=== PATIENT | female | born 1940 | race Caucasian/White ===

== ENCOUNTER 2024-06-14 18:43 | Emergency (ER) | payer MEDICARE, OTHER | END 2024-06-14 20:37 | disposition home or self-care (01) | LOC: CSHERS 18:43 | DX: S00.83XA Contusion of other part of head, initial encounter (principal); I10 Essential (primary) hypertension; I48.91 Unspecified atrial fibrillation; Z79.01 Long term (current) use of anticoagulants; W19.XXXA Unspecified fall, initial encounter | CPT/HCPCS: 70450; 93005; 93010 ==

== ENCOUNTER 2024-06-15 09:47 | Emergency (ER) | payer MEDICARE, OTHER ==
[2024-06-15 10:29] LABS: Hematocrit 36.4 % (34.9-44.5); Hemoglobin 11.2 g/dL (12.0-15.5); Mean Corpuscular HGB CONC 30.8 g/dL (32.0-36.0); Mean Corpuscular Hemoglobin 28.2 pg (27.0-33.0); Mean Corpuscular Volume 91.7 fL (81.6-98.3); Mean Platelet Volume 10.3 fL (7.4-10.4); Platelet Count 154 10x3/uL (150-450); RBC Distribution Width 16.8 % (11.5-14.5); Red Blood Cell (RBC) Count 3.97 10x6/uL (3.90-5.03); White Blood Cell (WBC) Count 5.2 10x3/uL (3.5-10.5)
[2024-06-15 10:30] LABS: MDiff Complete? YES
[2024-06-15 10:46] LABS: ALT (SGPT) 14 U/L (8-55); AST (SGOT) 56 U/L (5-34); Albumin 3.2 g/dL (3.4-4.8); Alkaline Phosphatase 63 U/L (40-110); Anion Gap 14 mmol/L (10-20); BUN (Urea Nitrogen) 19 mg/dL (9.8-20.1); Bilirubin, Total 0.6 mg/dL (0.2-1.2); Calc. Creatinine Clearance 0 mL/min (70-130); Calcium 9.5 mg/dL (7.8-10.44); Carbon Dioxide 28 mmol/L (23-31); Chloride 104 mmol/L (98-107); Estimated GFR 49; Globulin 2.9 g/dL (2.4-3.5); Glucose 80 mg/dL (83-110); Potassium 3.7 mmol/L (3.5-5.1); Protein, Total 6.1 g/dL (5.8-8.1); Sodium 142 mmol/L (136-145)
[2024-06-15 10:53] LABS: Troponin I Less than 0.010 ng/mL (< 0.028)
[2024-06-15 11:21] LABS: Band 1 % (5-11); Eosinophils 3 % (0-10); Lymphocytes 17 % (21-51); Monocytes 3 % (0-10); Neutrophil 76 % (42-75)
== END 2024-06-15 13:00 | disposition home or self-care (01) ==
LOC: CSHERS 09:47
DX: S00.83XA Contusion of other part of head, initial encounter (principal); I48.91 Unspecified atrial fibrillation; I10 Essential (primary) hypertension; Z55.0 Illiteracy and low-level literacy; Z79.899 Other long term (current) drug therapy; Z79.01 Long term (current) use of anticoagulants; W18.30XA Fall on same level, unspecified, initial encounter
CPT/HCPCS: 70450; 71045; 72128; 72131; 72170; 80053; 83605; 84484; 85025

== ENCOUNTER 2024-06-15 20:41 | Emergency (ER) | payer MEDICARE, OTHER | END 2024-06-15 22:25 | disposition home or self-care (01) | LOC: CSHERS 20:41 | DX: S00.83XA Contusion of other part of head, initial encounter (principal); Z55.6 Problems related to health literacy; I10 Essential (primary) hypertension; W07.XXXA Fall from chair, initial encounter | CPT/HCPCS: 70450; 71045; 72125; 72128; 72131; 72170; 80053; 83605; 84484; 85025 ==

== ENCOUNTER 2024-06-23 18:37 | Inpatient (IN) | payer MEDICARE, OTHER ==
[2024-06-23 20:10] LABS: Hematocrit 35.2 % (34.9-44.5); Hemoglobin 11.1 g/dL (12.0-15.5); Mean Corpuscular HGB CONC 31.5 g/dL (32.0-36.0); Mean Corpuscular Hemoglobin 28.5 pg (27.0-33.0); Mean Corpuscular Volume 90.3 fL (81.6-98.3); Mean Platelet Volume 10.5 fL (7.4-10.4); Platelet Count 150 10x3/uL (150-450); RBC Distribution Width 17.8 % (11.5-14.5); White Blood Cell (WBC) Count 4.2 10x3/uL (3.5-10.5)
[2024-06-23 20:17] LABS: INR-International Normal Ratio 1.1; PTT 37.4 sec (22.0-33.0); Prothrombin Time 12.3 sec (9.5-12.1)
[2024-06-23 20:21] LABS: ALT (SGPT) 14 U/L (8-55); AST (SGOT) 83 U/L (5-34); Albumin 2.8 g/dL (3.4-4.8); Alkaline Phosphatase 59 U/L (40-110); Anion Gap 15 mmol/L (10-20); BUN (Urea Nitrogen) 27 mg/dL (9.8-20.1); Bilirubin, Total 0.5 mg/dL (0.2-1.2); Calc. Creatinine Clearance 0 mL/min (70-130); Calcium 9.4 mg/dL (7.8-10.44); Carbon Dioxide 25 mmol/L (23-31); Chloride 101 mmol/L (98-107); Estimated GFR 29; Globulin 2.8 g/dL (2.4-3.5); Glucose 66 mg/dL (83-110); Potassium 4.2 mmol/L (3.5-5.1); Protein, Total 5.6 g/dL (5.8-8.1); Sodium 137 mmol/L (136-145)
[2024-06-23 20:23] LABS: Troponin I Less than 0.010 ng/mL (< 0.028)
[2024-06-23 20:29] LABS: MDiff Complete? YES
[2024-06-23 21:30] LABS: Band 8 % (5-11); Eosinophils 5 % (0-10); Lymphocytes 13 % (21-51); Monocytes 21 % (0-10); Neutrophil 52 % (42-75); Reactive Lymphocytes 1 % (0-10)
[2024-06-23 22:43] LABS: Anisocytosis SLIGHT = 6-15 cells (100X) (0-5/hpf); Platelet Adequacy Comment Appears Adequate
[2024-06-24] MEDS: Dextrose 5%-Lactated Ringers 1,000 ML IV SCH (02:14)
[2024-06-24] MEDS: Apixaban 2.5 MG TAB PO SCH ×2 (02:14→08:33)
[2024-06-24] MEDS: Oseltamivir 75 MG CAP PO SCH ×3 (02:16→09:38)
[2024-06-24 02:32] VITALS: BMI 22.1
[2024-06-24 03:52] LABS: Bilirubin Neg (Negative); Blood, Urine Negative (Negative); Clarity Clear (Clear); Glucose, Urine (Dipstick) Normal (Negative); Ketone, Urine Negative (Negative); Leukocyte Negative (Negative); Nitrite Negative (Negative); Protein, Urine (Dipstick) 30 mg/dl (Neg-Trace); Urobilinogen Normal mg/dL (Less than 2)
[2024-06-24 04:32] LABS: Bacteria/HPF Rare-Few HPF (None Seen); CAUTI Indications for Culture Alt mental st,lethar; RBC/HPF 0-3 HPF (0-3); Squamous Epithelial 0-3 HPF (0-3); Urine Culture Reflex No No; WBC/HPF 0-3 HPF (0-3)
[2024-06-24 04:33] LABS: Anion Gap 18 mmol/L (10-20); BUN (Urea Nitrogen) 25 mg/dL (9.8-20.1); Calc. Creatinine Clearance 22 mL/min (70-130); Calcium 8.9 mg/dL (7.8-10.44); Carbon Dioxide 22 mmol/L (23-31); Chloride 103 mmol/L (98-107); Estimated GFR 33; Glucose 76 mg/dL (83-110); Magnesium 1.9 mg/dL (1.6-2.6); Sodium 139 mmol/L (136-145)
[2024-06-24 04:35] LABS: Hematocrit 35.6 % (34.9-44.5); Hemoglobin 11.2 g/dL (12.0-15.5); Mean Corpuscular HGB CONC 31.5 g/dL (32.0-36.0); Mean Corpuscular Hemoglobin 28.7 pg (27.0-33.0); Mean Corpuscular Volume 91.3 fL (81.6-98.3); Platelet Count 142 10x3/uL (150-450); RBC Distribution Width 17.7 % (11.5-14.5); White Blood Cell (WBC) Count 4.1 10x3/uL (3.5-10.5)
[2024-06-24 04:36] LABS: MDiff Complete? YES
[2024-06-24 05:25] LABS: Band 5 % (5-11); Eosinophils 5 % (0-10); Lymphocytes 13 % (21-51); Monocytes 26 % (0-10); Neutrophil 51 % (42-75)
[2024-06-24 05:27] LABS: Anisocytosis SLIGHT = 6-15 cells (100X) (0-5/hpf); Platelet Adequacy Comment Appears Adequate
[2024-06-24] MEDS: Venlafaxine 75 MG TAB PO SCH (08:33)
[2024-06-24] MEDS: Multivitamin W/ Minerals 1 TAB PO SCH (08:33)
[2024-06-24] MEDS: buPROPion 75 MG TAB PO SCH (09:38)
[2024-06-24] MEDS: FLU (Fluad Triv) TS24-25 (65UP)/MF59C/PF 45 MCG/0.5 ML Syringe IM ONE (16:26)
[2024-06-25 04:34] LABS: #Basophils 0.04 10x3/uL (0.0-0.2); #Eosinophils 0.19 10x3/uL (0.0-0.5); #Neutrophils 2.56 10x3/uL (1.5-8.4); %Basophils 0.8 % (0.0-2.0); %Eosinophils 3.9 % (0.0-6.0); %Lymphocytes 12.9 % (18.0-47.0); %Monocytes 28.6 % (0.0-10.0); %Neutrophils 52.2 % (40.0-75.0); Hematocrit 34.1 % (34.9-44.5); Hemoglobin 10.9 g/dL (12.0-15.5); Mean Corpuscular Hemoglobin 28.6 pg (27.0-33.0); Mean Corpuscular Volume 89.5 fL (81.6-98.3); Mean Platelet Volume 10.3 fL (7.4-10.4); Platelet Count 143 10x3/uL (150-450); RBC Distribution Width 17.7 % (11.5-14.5); Red Blood Cell (RBC) Count 3.81 10x6/uL (3.90-5.03); White Blood Cell (WBC) Count 4.9 10x3/uL (3.5-10.5)
[2024-06-25 04:36] LABS: Anion Gap 14 mmol/L (10-20); BUN (Urea Nitrogen) 17 mg/dL (9.8-20.1); Calc. Creatinine Clearance 25 mL/min (70-130); Calcium 9.4 mg/dL (7.8-10.44); Carbon Dioxide 26 mmol/L (23-31); Chloride 102 mmol/L (98-107); Estimated GFR 38; Glucose 126 mg/dL (83-110); Magnesium 1.6 mg/dL (1.6-2.6); Potassium 3.9 mmol/L (3.5-5.1); Sodium 138 mmol/L (136-145)
[2024-06-25 06:17] LABS: Band 5 % (5-11); Eosinophils 4 % (0-10); Lymphocytes 12 % (21-51); Monocytes 29 % (0-10); Neutrophil 49 % (42-75)
[2024-06-25 06:18] LABS: Anisocytosis SLIGHT = 6-15 cells (100X) (0-5/hpf); Platelet Adequacy Comment Appears Decreased
[2024-06-25 06:19] LABS: Ovalocytes SLIGHT = 2-5 cells (100X) (0-1/hpf); Polychromasia SLIGHT = 2-3 cells (100X) (0-2/hpf)
[2024-06-25] MEDS: Dextrose 5%-Lactated Ringers 1,000 ML IV SCH (21:34)
[2024-06-25] MEDS: Gabapentin 300 MG CAP PO SCH (21:35)
[2024-06-25] MEDS: Acetaminophen 325 MG TAB PO PRN (21:40)
[2024-06-26 05:01] LABS: Hematocrit 31.6 % (34.9-44.5); Hemoglobin 10.3 g/dL (12.0-15.5); Mean Corpuscular HGB CONC 32.6 g/dL (32.0-36.0); Mean Corpuscular Hemoglobin 29.1 pg (27.0-33.0); Mean Corpuscular Volume 89.3 fL (81.6-98.3); RBC Distribution Width 17.7 % (11.5-14.5); Red Blood Cell (RBC) Count 3.54 10x6/uL (3.90-5.03); White Blood Cell (WBC) Count 3.8 10x3/uL (3.5-10.5)
[2024-06-26 05:02] LABS: Mean Platelet Volume 10.4 fL (7.4-10.4); Platelet Count 120 10x3/uL (150-450)
[2024-06-26 05:03] LABS: MDiff Complete? YES
[2024-06-26 05:12] LABS: Anion Gap 12 mmol/L (10-20); BUN (Urea Nitrogen) 13 mg/dL (9.8-20.1); Calc. Creatinine Clearance 29 mL/min (70-130); Calcium 8.9 mg/dL (7.8-10.44); Carbon Dioxide 29 mmol/L (23-31); Chloride 102 mmol/L (98-107); Estimated GFR 45; Glucose 91 mg/dL (83-110); Potassium 3.8 mmol/L (3.5-5.1); Sodium 139 mmol/L (136-145)
[2024-06-26 05:24] LABS: Band 17 % (5-11); Eosinophils 6 % (0-10); Lymphocytes 16 % (21-51); Monocytes 23 % (0-10); Neutrophil 35 % (42-75); Reactive Lymphocytes 3 % (0-10)
[2024-06-26 05:33] LABS: Anisocytosis SLIGHT = 6-15 cells (100X) (0-5/hpf); Dohle Bodies SLIGHT; Ovalocytes SLIGHT = 2-5 cells (100X) (0-1/hpf); Platelet Adequacy Comment Appears Decreased; Polychromasia SLIGHT = 2-3 cells (100X) (0-2/hpf)
[2024-06-26] MEDS: Cholecalciferol 1,000 UNITS (25 MCG) TAB PO SCH (09:57)
[2024-06-26] MEDS: Multivit, Therapeutic 1 TAB PO SCH (09:57)
[2024-06-26] MEDS: Amlodipine 10 MG TAB PO SCH (09:57)
[2024-06-26] MEDS: Oseltamivir 6 MG/ML ORAL SUSP PO SCH (11:07)
[2024-06-27 04:33] LABS: Hematocrit 36.9 % (34.9-44.5); Hemoglobin 11.6 g/dL (12.0-15.5)
[2024-06-27 04:35] LABS: Platelet Count 131 10x3/uL (150-450)
[2024-06-28] MEDS: Sodium Chloride 0.9% 1,000 ML IV SCH (18:23)
[2024-06-29 03:58] LABS: Anion Gap 14 mmol/L (10-20); BUN (Urea Nitrogen) 22 mg/dL (9.8-20.1); Calc. Creatinine Clearance 24 mL/min (70-130); Calcium 8.7 mg/dL (7.8-10.44); Carbon Dioxide 26 mmol/L (23-31); Chloride 100 mmol/L (98-107); Estimated GFR 36; Glucose 78 mg/dL (83-110); Potassium 4.3 mmol/L (3.5-5.1); Sodium 136 mmol/L (136-145)
[2024-06-29 09:06] LABS: Hematocrit 34.8 % (34.9-44.5); Hemoglobin 11.1 g/dL (12.0-15.5); MDiff Complete? YES; Mean Corpuscular HGB CONC 31.9 g/dL (32.0-36.0); Mean Corpuscular Hemoglobin 28.2 pg (27.0-33.0); Mean Corpuscular Volume 88.3 fL (81.6-98.3); Mean Platelet Volume 10.8 fL (7.4-10.4); Platelet Count 153 10x3/uL (150-450); RBC Distribution Width 17.2 % (11.5-14.5); Red Blood Cell (RBC) Count 3.94 10x6/uL (3.90-5.03); White Blood Cell (WBC) Count 5.9 10x3/uL (3.5-10.5)
[2024-06-29] MEDS: Lorazepam 2 MG/ML VIAL SLOW IVP SCH (10:08)
[2024-06-29 10:09] LABS: Band 3 % (5-11); Eosinophils 4 % (0-10); Lymphocytes 7 % (21-51); Monocytes 22 % (0-10); Neutrophil 58 % (42-75); Reactive Lymphocytes 2 % (0-10)
[2024-06-29 10:10] LABS: Anisocytosis SLIGHT = 6-15 cells (100X) (0-5/hpf); Vacuoles SLIGHT
[2024-06-29 10:11] LABS: Platelet Adequacy Comment Appears Adequate
[2024-06-29] MEDS: LevoFLOXacin 750 mg/D5W 750 MG in Premix 1 BAG IVPB SCH (10:51)
[2024-06-29] MEDS: metroNIDAZOLE 500 MG in Premix 1 BAG IVPB SCH (14:26)
[2024-06-30 04:14] LABS: Anion Gap 16 mmol/L (10-20); BUN (Urea Nitrogen) 23 mg/dL (9.8-20.1); Calc. Creatinine Clearance 21 mL/min (70-130); Calcium 8.8 mg/dL (7.8-10.44); Carbon Dioxide 23 mmol/L (23-31); Chloride 102 mmol/L (98-107); Estimated GFR 31; Glucose 59 mg/dL (83-110); Potassium 4.3 mmol/L (3.5-5.1); Sodium 137 mmol/L (136-145)
[2024-07-01 04:45] LABS: Anion Gap 16 mmol/L (10-20); BUN (Urea Nitrogen) 24 mg/dL (9.8-20.1); Calc. Creatinine Clearance 21 mL/min (70-130); Calcium 8.3 mg/dL (7.8-10.44); Carbon Dioxide 21 mmol/L (23-31); Chloride 106 mmol/L (98-107); Estimated GFR 32; Glucose 55 mg/dL (83-110); Potassium 4.4 mmol/L (3.5-5.1); Sodium 139 mmol/L (136-145)
[2024-07-01] MEDS: LevoFLOXacin 500 mg/D5W 500 MG in Premix 1 BAG IVPB SCH (06:25)
[2024-07-01] MEDS: metroNIDAZOLE 500 MG in Premix 1 BAG IVPB SCH (08:09)
[2024-07-01 10:22] VITALS: BMI 22.1
[2024-07-01] MEDS: metroNIDAZOLE 500 MG (100 mL) BAG ONE (10:37)
[2024-07-01] MEDS: Baclofen 10 MG TAB PO PRN (13:25)
[2024-07-02 03:51] LABS: Hematocrit 33.8 % (34.9-44.5); Hemoglobin 10.4 g/dL (12.0-15.5); Mean Corpuscular HGB CONC 30.8 g/dL (32.0-36.0); Mean Corpuscular Volume 90.9 fL (81.6-98.3); Mean Platelet Volume 10.6 fL (7.4-10.4); Platelet Count 170 10x3/uL (150-450); RBC Distribution Width 18.1 % (11.5-14.5); Red Blood Cell (RBC) Count 3.72 10x6/uL (3.90-5.03); White Blood Cell (WBC) Count 7.4 10x3/uL (3.5-10.5)
[2024-07-02 04:00] LABS: Anion Gap 19 mmol/L (10-20); BUN (Urea Nitrogen) 23 mg/dL (9.8-20.1); Calc. Creatinine Clearance 22 mL/min (70-130); Calcium 8.2 mg/dL (7.8-10.44); Carbon Dioxide 17 mmol/L (23-31); Chloride 107 mmol/L (98-107); Estimated GFR 32; Potassium 4.1 mmol/L (3.5-5.1); Sodium 139 mmol/L (136-145)
[2024-07-02 04:02] LABS: Critical Call Chemistry OS.YZ@0401; Glucose 54 mg/dL (83-110)
[2024-07-02] MEDS: Dextrose 50% Abboject 50 ML SYRINGE SLOW IVP SCH (05:02)
[2024-07-02] MEDS ORDERED: Dextrose 5% in Water 1,000 ML IV PRN (06:48)
[2024-07-02] MEDS ORDERED: Glucagon 1 MG/ML KIT IM PRN (06:48)
[2024-07-02] MEDS ORDERED: Dextrose 50% Abboject 50 ML SYRINGE SLOW IVP PRN (06:48)
[2024-07-02] MEDS: Ondansetron PF 4 MG/2 ML Vial IVP PRN (12:29)
[2024-07-03 03:52] LABS: Anion Gap 15 mmol/L (10-20); BUN (Urea Nitrogen) 24 mg/dL (9.8-20.1); Calc. Creatinine Clearance 18 mL/min (70-130); Calcium 8.4 mg/dL (7.8-10.44); Carbon Dioxide 18 mmol/L (23-31); Chloride 111 mmol/L (98-107); Estimated GFR 26; Glucose 76 mg/dL (83-110); Potassium 3.9 mmol/L (3.5-5.1); Sodium 140 mmol/L (136-145)
[2024-07-03] MEDS: Lactated Ringer's 500 ML IV SCH (17:36)
[2024-07-03] MEDS: Sodium Chloride 0.9% 1,000 ML IV SCH (17:36)
[2024-07-03] MEDS: Lactated Ringer's 1,000 ML IV SCH (19:52)
[2024-07-03] MEDS: Furosemide 40 MG (4 mL) VIAL SLOW IVP SCH (21:50)
[2024-07-04 03:48] LABS: Hemoglobin 10.5 g/dL (12.0-15.5); Mean Corpuscular HGB CONC 31.8 g/dL (32.0-36.0); Mean Corpuscular Hemoglobin 28.6 pg (27.0-33.0); Mean Corpuscular Volume 89.9 fL (81.6-98.3); Platelet Count 160 10x3/uL (150-450); RBC Distribution Width 19.1 % (11.5-14.5); Red Blood Cell (RBC) Count 3.67 10x6/uL (3.90-5.03); White Blood Cell (WBC) Count 9.2 10x3/uL (3.5-10.5)
[2024-07-04 04:02] LABS: Anion Gap 17 mmol/L (10-20); BUN (Urea Nitrogen) 23 mg/dL (9.8-20.1); Calc. Creatinine Clearance 17 mL/min (70-130); Calcium 8.8 mg/dL (7.8-10.44); Carbon Dioxide 16 mmol/L (23-31); Chloride 110 mmol/L (98-107); Estimated GFR 24; Glucose 61 mg/dL (83-110); Sodium 139 mmol/L (136-145)
[2024-07-04 08:46] VITALS: BP 112/65; TEMP 98.3
== END 2024-07-04 10:27 | disposition short-term general hospital (02) | DRG 682 ==
LOC: CSHERS 18:37 → CSHTELE 06-24 00:55 → OBSVTOIN 06-25 08:58
PROVIDERS: ADMIT Family Medicine; ATTEND Internal Medicine
DX: N17.9 Acute kidney failure, unspecified (principal); G93.41 Metabolic encephalopathy; J18.9 Pneumonia, unspecified organism; J96.11 Chronic respiratory failure with hypoxia; J10.1 Influenza due to other identified influenza virus with other respiratory manifestations; I48.91 Unspecified atrial fibrillation; E86.0 Dehydration; Z79.01 Long term (current) use of anticoagulants; Z79.899 Other long term (current) drug therapy; N18.30 Chronic kidney disease, stage 3 unspecified; I12.9 Hypertensive chronic kidney disease with stage 1 through stage 4 chronic kidney disease, or unspecified chronic kidney disease; Z98.890 Other specified postprocedural states; Z90.710 Acquired absence of both cervix and uterus
CPT/HCPCS: 36415; 36416; 70450; 70551; 71045; 74230; 76770; 80048; 80053; 81001; 83735; 84439; 84443; 84484; 85014; 85018; 85025; 85027; 85049; 85610; 85730; 87040; 87428; 93005; 93010; 94760; 94762; G0378; J1940; J1956; J2060; J2405; J7030; J7120; J7999